=== PATIENT | female | born 1985 | race Caucasian/White ===

== ENCOUNTER 2019-08-08 16:50 | Emergency (ER) | payer BC, MEDICAID ==
[~2019-08-08] VITALS: Ht 162.6 cm; Wt 73.0 kg
[~2019-08-08 16:50] MED LIST: ACET-812 PO; ETON1VAG
[2019-08-08] MEDS ORDERED: ondansetron 4mg/5ml UD cup PO ONE (20:05)
[2019-08-08] MEDS ORDERED: ondansetron 4mg rapidly disintigrating tab PO ONE (20:10)
[2019-08-08 20:23] LABS: URINE HCG NEGATIVE (NEG)
[2019-08-08 20:32] LABS: COLOR,URINE YELLOW (Yellow); GLUCOSE, URINE NEGATIVE (Neg); KETONES,URINE NEGATIVE (Neg); LEUKOCYTE ESTERASE ,URINE TRACE (Neg); NITRITES, URINE NEGATIVE (Neg); OCCULT BLOOD,URINE NEGATIVE (Neg); PH,URINE 7.5 (4.8-8.0); PROTEIN,URINE NEGATIVE (Neg); UROBILINOGEN,URINE 0.2 E.U/dL (0.2-1.0)
[2019-08-08 20:35] LABS: CLARITY,URINE SLIGHTLY CLOUDY (Clear); UA COLLECTION TYPE VOIDED
[2019-08-08 20:38] LABS: BACTERIA,URINE FEW /HPF (Neg); RBC,URINE NONE SEEN /HPF (0-2); SQUAMOUS EPITHELIAL CELL,UR FEW /LPF (FEW); WBC,URINE 0-4 /HPF (0-4)
[2019-08-08 20:59] LABS: BASOPHILS % (AUTO) 0.3 % (0-1); EOSINOPHILS % (AUTO) 0.6 % (0-6); HEMATOCRIT 37.6 % (35.0-45.0); HEMOGLOBIN 12.7 g/dl (12.0-16.0); LYMPHOCYTES # (AUTO) 2.9 X10'3 (1.1-4.8); LYMPHOCYTES % (AUTO) 32.5 % (21-51); MEAN CORPUSCULAR HEMOGLOBIN 30.1 PG (27.0-31.0); MEAN CORPUSCULAR HGB CONC 33.7 g/dL (33.0-36.5); MEAN CORPUSCULAR VOLUME 89.4 FL (78-98); MEAN PLATELET VOLUME 7.9 FL (7.4-10.4); MONOCYTES # (AUTO) 0.7 X10'3 (0-0.9); MONOCYTES % (AUTO) 7.5 % (2-12); NEUTROPHILS # (AUTO) 5.2 X10'3 (1.8-7.7); NEUTROPHILS % (AUTO) 59.1 % (42-75); PLATELET COUNT 281 X10'3 (140-440); RED CELL DISTRIBUTION WIDTH 13.2 % (11.5-14.5); WHITE BLOOD COUNT 8.8 X10'3 (4.5-11.0)
[2019-08-08 21:14] LABS: ALANINE AMINOTRANSFERASE 30 U/L (12-78); ALBUMIN 3.9 G/DL (3.4-5.0); ALBUMIN/GLOBULIN RATIO 1.1 (1.1-1.5); ALKALINE PHOSPHATASE 64 IU/L (46-116); ANION GAP 6 (8-16); ASPARTATE AMINO TRANSFERASE 13 U/L (10-37); BILIRUBIN,TOTAL 0.3 MG/DL (0.1-1.0); BLOOD UREA NITROGEN 10 MG/DL (7-18); BUN/CREATININE RATIO 14.7 (6.6-38.0); CALCIUM 9.1 MG/DL (8.5-10.1); CHLORIDE 107 MMOL/L (99-107); CREATININE 0.68 MG/DL (0.40-0.90); GLUCOSE 91 MG/DL (70-104); POTASSIUM 3.8 MMOL/L (3.5-5.1); SODIUM 142 MMOL/L (135-145); TOTAL CARBON DIOXIDE 29.4 MMOL/L (24-32); TOTAL PROTEIN 7.4 G/DL (6.4-8.2); eGFR > 90 ML/MIN
[2019-08-08] MEDS ORDERED: meclizine 12.5mg tablet PO ONE (21:25)
[2019-08-08] MEDS ORDERED: MECL-159 PO (21:29)
[2019-08-08] MEDS ORDERED: ONDA8TAB13 PO (21:29)
[2019-08-08 21:39] VITALS: BP 112/49
== END 2019-08-08 21:41 | disposition home or self-care (01) ==
LOC: ER 16:51
DX: R42 Dizziness and giddiness (principal); B34.9 Viral infection, unspecified; Z98.51 Tubal ligation status
CPT/HCPCS: 36415; 70450; 80053; 81001; 81025; 85025; 87088; 93005; 99284; J8597

== ENCOUNTER 2024-07-04 09:12 | Day surgery (SDC) | payer BC ==
[~2024-07-04] VITALS: Ht 162.6 cm; Wt 74.0 kg
[~2024-07-04 09:12] MED LIST changes: -ETON1VAG; +ETON1VAG14; +MECL-302 PO; +ONDA-245 PO
== END 2024-07-04 11:00 | disposition home or self-care (01) ==
LOC: SSTAY O 09:12
PROVIDERS: ATTEND Nurse Practitioner Family
DX: E04.1 Nontoxic single thyroid nodule (principal); Z53.8 Procedure and treatment not carried out for other reasons
CPT/HCPCS: 76882